=== PATIENT | male | born 1975 | race Caucasian/White ===

== ENCOUNTER 2017-06-02 14:13 | Emergency (ER) | payer SELFPAY ==
[~2017-06-02] VITALS: Ht 167.6 cm; Wt 82.0 kg
[2017-06-02 14:20] VITALS: BP 137/76; PULSE 99; RESP 20; TEMP 98.8; O2SAT 100
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
[2017-06-02] MEDS ORDERED: ACETAMINOPHEN/HYDROcodone 325 MG/5 MG TAB PO ONE (16:15)
[2017-06-02] MEDS ORDERED: BUPIVACAINE HCL PF 0.5% 10 ML VIAL INFIL ONE (16:15)
[2017-06-02] MEDS ORDERED: LIDOCAINE HCL 1% 30 ML VIAL INFIL ONE (16:15)
[2017-06-02] MEDS ORDERED: BACT800T5 PO (17:40)
[2017-06-02] MEDS ORDERED: NORC5TAB PO (17:40)
[2017-06-02] MEDS ORDERED: IBUP1TAB7 PO (17:40)
== END 2017-06-02 18:08 | disposition home or self-care (01) ==
LOC: NEPD 14:13
DX: S61.411A Laceration without foreign body of right hand, initial encounter (principal); S61.213A Laceration without foreign body of left middle finger without damage to nail, initial encounter; M54.2 Cervicalgia; F17.200 Nicotine dependence, unspecified, uncomplicated; Z86.19 Personal history of other infectious and parasitic diseases; Y09 Assault by unspecified means
CPT/HCPCS: 12002